=== PATIENT | female | born 1925 | race Caucasian/White ===

== ENCOUNTER 2016-10-06 12:09 | Outpatient (CLI) | payer MEDICARE, OTHER ==
[2016-10-06 19:42] LABS: CALCIUM 9.8 mg/dL (8.5-10.3); CREATININE 1.2 mg/dL (0.4-1.0)
== END 2016-10-06 12:10 ==
LOC: LAB.R 12:09
PROVIDERS: ATTEND Nurse Practitioner Primary Care
DX: I50.1 Left ventricular failure, unspecified (principal)
CPT/HCPCS: 80048; 83880

== ENCOUNTER 2016-10-19 11:15 | Outpatient (CLI) | payer MEDICARE, OTHER | END 2016-10-19 11:16 | disposition home or self-care (01) | LOC: LAB.R 11:15 | PROVIDERS: ATTEND Nurse Practitioner Primary Care | DX: I50.9 Heart failure, unspecified (principal); Z79.899 Other long term (current) drug therapy | CPT/HCPCS: 83880; 84132 ==

== ENCOUNTER 2017-06-30 00:32 | Outpatient (CLI) | payer MEDICARE, OTHER | END 2017-06-30 00:33 | disposition critical access hospital (66) | LOC: EMS 00:32 | PROVIDERS: ATTEND Surgery | DX: R11.10 Vomiting, unspecified (principal) | CPT/HCPCS: A0425; A0429 ==

== ENCOUNTER 2017-06-30 00:43 | Emergency (ER) | payer MEDICARE, OTHER ==
[2017-06-30 00:52] VITALS: BP 0/0
--- NOTE | 2017-06-30 01:31 | ED Physician Documentation ---
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 The original call out was secondary to a ground level fall. Patient was awake and alert when ems arrived. While enroute patient had two episodes of bloody and coffee ground emesis. When the checked on the patient she was pulseless and apneic. ems started cpr just prior to arrival. 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 - Present Medications Home Medications: Ambulatory Orders Medication Instructions Recorded Confirmed Aspirin/Calcium Carbonate/Mag 325 mg PO DAILY 11/04/13 11/04/13 [Aspirin Buffered 325 mg Tab] Calcium Carbonate/Vitamin D3 1 tab PO DAILY 11/04/13 11/04/13 [Calcium 600 + Vit D 400 Softgl] Cholecalciferol (Vitamin D3) 2,000 unit PO DAILY 11/04/13 11/04/13 [Vitamin D] Docusate Sodium [Colace] 1 cap PO BID 11/04/13 11/04/13 Levothyroxine Sodium [Levoxyl] 25 mcg PO DAILY 11/04/13 11/04/13 Morphine Sulfate 15 mg PO TID 11/04/13 11/04/13 Morphine Sulfate [Morphine Sulfate 30 mg PO TID 11/04/13 11/04/13 Cr] Multivitamin [Multi Vitamin Daily] 1 tab PO DAILY 11/04/13 11/04/13 Primidone 75 mg PO BID 11/04/13 11/04/13 Propranolol [Inderal] 80 mg PO BID 11/04/13 11/04/13 Senna [Senokot] 2 tab PO DAILY 11/04/13 11/04/13 amLODIPine [Norvasc] 5 mg PO DAILY 11/04/13 11/04/13 - Allergies Allergies/Adverse Reactions: Allergies Allergy/AdvReac Type Severity Reaction Status Date / Time adhesive Allergy Rash Verified 11/04/13 20:44 lactose AdvReac Cramps Verified 11/04/13 20:45 - Social History Does the pt smoke?: No Smoking Status: Never smoker Does the pt drink ETOH?: Yes Does the pt have substance abuse?: No - Immunizations Immunizations are current?: Yes - POLST Patient has POLST: Yes PD ED PE NORMAL - Abdomen Abdomen: Soft - Derm Derm: No rash - Extremities Extremities: No deformity PD ED PE EXPANDED - General General: Unresponsive - HEENT HEENT: Other (coagulated blood in the airway and nares, pupils fixed and dilated ) - Neck Neck: JVD present - Cardiac Cardiac: Other (no palpable pulse). No: Normal pulses - Respiratory Respiratory: Other (apneic ) Results - Vitals Vitals: Vital Signs - 24 hr 06/30/17 00:50 Heart Rate 0 L Respiratory 0 L Rate Blood Pressure 0/0 L O2 Saturation 73 L Oxygen O2 Source [With Activity] Room air O2 Source [Without Activity] Room air O2 Source Room air PD MEDICAL DECISION MAKING - ED course Complexity details: reviewed old records, re-evaluated patient, d/w family ED course: Patient was seen and examined at bedside. Patient had just arrested while enroute. CPR was in progress. Patient was treated with epinephrine. the first pulse check revealed no palpable pulse and cpr was resumed. Patient was treated with a second epinephrine after 3 minutes. Second pulse check again revealed no pulse or shockable rhythm. Patient was treated with a third epinephrine following acls protocol. Patient's family had arrived and the patient's wishes were discussed with the . he stated that the patient was DNR/DNI and did not want any heroic measures. CPR was stopped. Patient had a faint rhythm secondary to the epinephrine but her pupils were fixed and dilated. Patient's heart stopped and patient was pronounced . - Critical Care Time(min): 20 Time Includes: Direct patient care Data interpretation: Cardiac output Departure - Departure Disposition: 20 Clinical Impression: Cardiac arrest Condition: Critical
== END 2017-06-30 04:45 | disposition expired ==
LOC: EDUNIT# → ED 00:43
DX: I46.9 Cardiac arrest, cause unspecified (principal); Z91.81 History of falling; Z66 Do not resuscitate; F03.90 Unspecified dementia, unspecified severity, without behavioral disturbance, psychotic disturbance, mood disturbance, and anxiety; E03.9 Hypothyroidism, unspecified; Z96.659 Presence of unspecified artificial knee joint; Z79.82 Long term (current) use of aspirin
CPT/HCPCS: 92950; 99285; 99291